=== PATIENT | male | born 2000 | race Caucasian/White ===

== ENCOUNTER 2018-02-05 23:07 | Emergency (ER) | payer BC ==
[2018-02-05 23:13] VITALS: BP 110/59
--- NOTE | 2018-02-06 00:56 | EDPHY ---
H & P Smoking Status: Never smoked Time Seen by Provider: 02/05/18 23:36 HPI/ROS: CHIEF COMPLAINT: Left thumb laceration HISTORY OF PRESENT ILLNESS: Patient is a 17-year-old male here with his mother complaining of laceration to the left thumb. This happened just prior to arrival were accidentally cut himself with a pocket knife. Denies any drug or alcohol use currently. Does report limited flexion of the thumb with full extension of the thumb. Denies any numbness. ROS As detailed in HPI (Tommy Kim) Physical Exam: General: Alert and oriented. Nontoxic appearing. No acute distress HEENT: Pupils PERRLA. No oral lesions. Cardiopulmonary: Regular rate and rhythm. No lower extremity edema Skin: [place] warm and dry. 1.5 cm laceration to the medial aspect of the left thumb. Neurovascular intact distally. Missing approximately 20 30 degrees of full flexion. Muscle skeletal: Moving all 4 extremities. Equal strength in upper extremities and lower extremities. Ambulatory. (Tommy Kim) Constitutional: Initial Vital Signs Temperature (C) 36.8 C 02/05/18 23:11 Heart Rate 71 02/05/18 23:11 Respiratory Rate 16 02/05/18 23:11 Blood Pressure 110/59 L 02/05/18 23:11 O2 Sat (%) 97 02/05/18 23:11 O2 Delivery Mode Room Air Allergies/Adverse Reactions: amoxicillin Allergy (Verified 02/05/18 23:11) Home Medications: Medication Instructions Recorded Clindamycin 300 mg PO TID #15 cap 02/06/18 Medical Decision Making ED Course/Re-evaluation: Procedure: Laceration repair. Verbal consent was obtained from the patient. The 1.5 cm left thumb laceration was anesthetized in the usual fashion. The wound was irrigated, draped and explored to its base with a gloved finger. There were no deep structures involved. The wound was repaired with 3 5-0 nylon sutures and the wound was well approximated. The wound repair was without complication The procedure was performed by myself. As patient did have limited range of motion with flexion he was referred to Orthopedics for further evaluation. He is started on oral antibiotics for possible tendon injury. (Tommy Kim) PHYSICIAN DOCUMENTATION: The patient was evaluated and managed by the Physician Composite Layup Worker. My co- signature indicates that I have reviewed this chart and I agree with the findings and plan of care as documented. I am the secondary supervising physician. (Maya Singleton) Differential Diagnosis: Fracture, dislocation, tendon injury, neurovascular injury (Tommy Kim) - Data Points Medications Given: Discontinued Medications Clindamycin (Clindamycin) 300 mg PO EDNOW ONE PRN Reason: Protocol Stop: 02/06/18 01:07 Last Admin: 02/06/18 01:10 Dose: 300 mg Departure - Departure Disposition: Home, Routine, Self-Care Clinical Impression: Thumb laceration Condition: Good Instructions: Laceration (ED) Additional Instructions: Please call Orthopedics on Wednesday to schedule appointment for further evaluation of possible tendon injury. Take antibiotic as prescribed. Please refrain from using the thumb for things like biking into your cleared by Orthopedics. Referrals: [facility] [Other] - As per Instructions Bladimir Lim MD [Medical Doctor] - As per Instructions Prescriptions: Clindamycin 300 mg PO TID #15 cap
[2018-02-06] MEDS ORDERED: CLINDAMYCIN 150 MG CAP PO ONE (01:06)
== END 2018-02-06 01:34 | disposition home or self-care (01) ==
PROC: 0HQGXZZ Repair Left Hand Skin, External Approach (ICD-10-PCS; principal; 2018-02-05)
DX: S61.012A Laceration without foreign body of left thumb without damage to nail, initial encounter (principal); W26.0XXA Contact with knife, initial encounter; Y92.9 Unspecified place or not applicable
CPT/HCPCS: L3925